=== PATIENT | male | born 1965 ===

== ENCOUNTER 2018-07-12 15:27 | Emergency (ER) | payer OTHER ==
--- NOTE | 2018-07-12 16:26 | UC ---
Skin Complaint HPI - HPI Summary HPI Summary: 53-year-old male comes in to clinic today with a complaint of a tick had bitten him on the left upper abdomen. He discovered it this morning and removed with tweezers. This is been on they're from 12 TO 24 hrs. No fevers or chills feels well. He has been treated for Lyme in the past. NO Rash. - History of Current Complaint Chief Complaint: UCSkin Time Seen by Provider: 07/12/18 16:09 Stated Complaint: TICK BITE Pain Intensity: 1 - Allergy/Home Medications Allergies/Adverse Reactions: Allergies Allergy/AdvReac Type Severity Reaction Status Date / Time Penicillins Allergy Rash Verified 07/12/18 15:46 Review of Systems Constitutional: Negative Skin: Other - See history present illness Eyes: Negative ENT: Negative Respiratory: Negative Cardiovascular: Negative Gastrointestinal: Negative Motor: Negative Neurovascular: Negative Musculoskeletal: Negative Neurological: Negative Psychological: Negative Is Patient Immunocompromised?: No All Other Systems Reviewed And Are Negative: Yes PMH/Surg Hx/FS Hx/Imm Hx Previously Healthy: Yes - Surgical History Surgical History: Yes Surgery Procedure, Year, and Place: hip displasia repair - Family History Known Family History: Negative: Hypertension, Diabetes - Social History Alcohol Use: Weekly Substance Use Type: None Smoking Status (MU): Never Smoked Tobacco Physical Exam Triage Information Reviewed: Yes Appearance: Well-Appearing, No Pain Distress, Well-Nourished Vital Signs: Initial Vital Signs Temp 98.1 F 07/12/18 15:42 Pulse 62 07/12/18 15:42 Resp 18 07/12/18 15:42 BP 130/82 07/12/18 15:42 Pulse Ox 100 07/12/18 15:42 Vital Signs Reviewed: Yes Eye Exam: Normal Eyes: Positive: Conjunctiva Clear Neck exam: Normal Neck: Positive: Supple Respiratory: Positive: No respiratory distress Musculoskeletal Exam: Normal Musculoskeletal: Positive: Strength Intact, ROM Intact, No Edema Neurological Exam: Normal Neurological: Positive: Alert Psychological Exam: Normal Psychological: Positive: Normal Response To Family Skin: Positive: Other - Left upper anterior abdomen there is a 2 mm eschar at the patient reports is where he pulled the tick out of. I do not see any foreign body remaining in the wound. There is no rash no streaking. Course/Dx - Diagnoses Provider Diagnoses: Tick bite Discharge - Sign-Out/Discharge Documenting (check all that apply): Patient Departure All imaging exams completed and their final reports reviewed: No Studies - Discharge Plan Condition: Stable Disposition: HOME Prescriptions: DOXYcycline CAP(*) [DOXYcycline 100MG CAP(*)] 200 mg PO DAILY #2 cap Patient Education Materials: Tick Bite (ED) Referrals: Josep Kinney MD [Primary Care Provider] - Additional Instructions: FOLLOW UP WITH YOUR DOCTOR IF NOT COMPLETELY IMPROVED. GET RECHECKED FOR ANY WORSENING OF YOUR CONDITION OR QUESTIONS OR CONCERNS. - Billing Disposition and Condition Condition: STABLE Disposition: Home
== END 2018-07-12 16:33 | disposition home or self-care (01) ==
LOC: UCEAST 15:27
DX: S30.861A Insect bite (nonvenomous) of abdominal wall, initial encounter (principal); W57.XXXA Bitten or stung by nonvenomous insect and other nonvenomous arthropods, initial encounter; Y93.9 Activity, unspecified; Y92.9 Unspecified place or not applicable; Z88.0 Allergy status to penicillin
CPT/HCPCS: 99202; G0463

== ENCOUNTER 2018-10-10 08:46 | Emergency (ER) | payer OTHER ==
--- NOTE | 2018-10-10 09:14 | UC ---
FLU HPI - HPI Summary HPI Summary: 53-year-old male presents with onset of nonproductive cough 3 days ago. Yesterday developed severe sore throat, fatigue, general malaise, myalgias, chills, and mild nasal congestion. This morning noted some mild dizziness and nausea. Denies fever, chest pain, palpitations, shortness of breath, abdominal pain, vomiting, diarrhea, dysuria, frequency, or urgency. - History of Current Complaint Chief Complaint: UCBackPain Stated Complaint: BODY ACHES Time Seen by Provider: 10/10/18 09:07 Hx Obtained From: Patient Pain Intensity: 6 - Allergy/Home Medications Allergies/Adverse Reactions: Allergies Allergy/AdvReac Type Severity Reaction Status Date / Time Penicillins Allergy Rash Verified 10/10/18 09:01 Home Medications: Home Medications Dm/Acetaminophen/Doxylamine [Night Cold-Flu Relief Liq Gel] 2 each PO ONCE 10/10 [History Confirmed 10/10/18] Eucalyptus/Menthol [Verdin Cough Drops] 1 judson [place] Q4HR PRN 10/10/18 [History Confirmed 10/10/18] PMH/Surg Hx/FS Hx/Imm Hx Previously Healthy: Yes - Denies significant PMH - Surgical History Surgical History: Yes Surgery Procedure, Year, and Place: hip displasia repair - Family History Known Family History: Positive: Non-Contributory - Social History Occupation: Employed Full-time Lives: With Family Alcohol Use: Occasionally Substance Use Type: None Smoking Status (MU): Never Smoked Tobacco Review of Systems All Other Systems Reviewed And Are Negative: Yes Constitutional: Positive: Fever, Chills, Fatigue Skin: Negative: Rash Eyes: Negative: Drainage, Eye Redness ENT: Positive: Sore Throat, Nasal Discharge, Sinus Congestion, Sinus Pain/ Tenderness. Negative: Ear Ache Respiratory: Positive: Cough. Negative: Shortness Of Breath Cardiovascular: Negative: Palpitations, Chest Pain Gastrointestinal: Positive: Nausea. Negative: Abdominal Pain, Vomiting, Diarrhea Genitourinary: Negative: Dysuria, Frequency, Urgency Musculoskeletal: Positive: Myalgia Neurological: Positive: Headache Is Patient Immunocompromised?: No Physical Exam - Summary Physical Exam Summary: GENERAL APPEARANCE: Well developed, well nourished, alert and cooperative, and appears to be in no acute distress. EYES: Conjunctiva clear. No drainage. Vision is grossly intact. EARS: External auditory canals and tympanic membranes clear, hearing grossly intact. NOSE: Mild nasal congestion with mucosal erythema. No nasal discharge. Mild maxillary and frontal sinus tenderness with percussion. THROAT: Pharyngeal erythema, 1+ tonsils with exudate. Oral cavity normal. Teeth and gingiva in good general condition. NECK: Neck supple, non-tender. Mild anterior cervical lymphadenopathy. CARDIAC: Normal S1 and S2. No S3, S4 or murmurs. Rhythm is regular. There is no peripheral edema, cyanosis or pallor. Extremities are warm and well perfused. Capillary refill is less than 2 seconds. LUNGS: Clear to auscultation and percussion without rales, rhonchi, wheezing or diminished breath sounds. ABDOMEN: Positive bowel sounds. Soft, nondistended, nontender. No guarding or rebound. No masses or hepatosplenomegally. MUSKULOSKELETAL: ROM intact to all extremities. No joint erythema or tenderness. Normal muscular development. Normal gait. SKIN: Skin normal color, texture and turgor with no lesions or eruptions. Triage Information Reviewed: Yes Vital Signs: Initial Vital Signs Temp 100.2 F 10/10/18 08:57 Pulse 95 10/10/18 08:57 Resp 20 10/10/18 08:57 BP 135/80 10/10/18 08:57 Pulse Ox 98 10/10/18 08:57 Vital Signs Reviewed: Yes Diagnostics - Laboratory Diagnostic Studies Completed/Ordered: Rapid flu negative. Rapid strep negative. Flu Course/Dx - Course Course Of Treatment: 53-year-old male presents with onset of nonproductive cough 3 days ago. Yesterday developed severe sore throat, fatigue, general malaise, myalgias, chills, and mild nasal congestion. This morning noted some mild dizziness and nausea. Denies fever, chest pain, palpitations, shortness of breath, abdominal pain, vomiting, diarrhea, dysuria, frequency, or urgency. Mildly elevated temperature of 100.2 F at triage, other vital signs stable. Exam reveals ill-appearing male with mild nasal congestion, mild frontal and maxillary sinus tenderness, pharyngeal erythema, 1+ tonsils with exudate present , bilateral breath sounds clear with no respiratory distress. Rapid flu test negative. Rapid strep neagative. With the fever and sinus pressure will treat for bacterial sinusitis vs URI. He is to start doxycycline 100 mg BID x 10 days as well as symptomatic treatment including saline rinses, fluticasone nasal spray, OTC decongestant, and OTC analgesics. Recommend that he follow up with PCP in 3-5 days for recheck of symptoms. Warning symptoms reviewed with patient. Verbalizes understanding and agrees with plan of care. - Differential Dx/Diagnosis Differential Diagnosis/HQI/PQRI: Bronchitis, Influenza, Pneumonia, Upper Respiratory Infection, Other - Pharyngitis Provider Diagnosis: Acute sinusitis Discharge - Sign-Out/Discharge Documenting (check all that apply): Patient Departure All imaging exams completed and their final reports reviewed: No Studies - Discharge Plan Condition: Stable Disposition: HOME Prescriptions: Doxycycline Hyclate 100 mg PO BID #20 tablet Fluticasone NASAL SPRAY 50MCG* [Flonase NASAL SPRAY 50MCG*] 2 spray BOTH NARES DAILY #1 btl Patient Education Materials: Sinusitis (ED) Referrals: Josep Kinney MD [Primary Care Provider] - Additional Instructions: Your history and exam are suspicious for a bacterial sinus infection. We will start you on an antibiotic for the infection. Start doxycycline 1 tab twice a day for 10 days. Be sure to complete the entire prescription even if feeling better. Drink plenty of fluids to avoid dehydration especially if you are running any fever. Use a saline rinse kit such as Neti Pot or NeilMed at least twice a day to help thin secretions and promote drainage of the sinuses. Use fluticasone (Flonase) nasal spray 2 sprays each nostril once daily. Take over the counter acetaminophen (Tylenol) or ibuprofen (Advil, Motrin) according to directions as needed for pain or fever. Use salt water gargles several times a day if you have a sore throat. You may also use Chloraseptic spray or Cepacol lonzenges according to directions which contain a numbing medication and can provide some temporary relief from your sore throat. Follow up with your primary care provider in 3-5 days for recheck of symptoms. Seek immediate medical attention in the emergency room if you have fever greater than 100.5 F despite taking acetaminophen or ibuprofen, have chest pain , difficulty breathing, are unable to swallow, or have any worsening of symptoms. - Billing Disposition and Condition Condition: STABLE Disposition: Home
[2018-10-10] MEDS ORDERED: Ibuprofen TAB* 600 MG PO ONE (09:40)
== END 2018-10-10 10:10 | disposition home or self-care (01) ==
LOC: UCEAST 08:46
DX: J01.90 Acute sinusitis, unspecified (principal); Z88.0 Allergy status to penicillin
CPT/HCPCS: 87651; 99212; A9270-GY; G0463